=== PATIENT | female | born 2000 | race Caucasian/White ===

== ENCOUNTER → 2022-04-06 | Outpatient (CLI) | payer BC ==
--- NOTE | 2022-04-06 12:05 | XR ---
EXAM TYPE: LUMBAR SPINE X RAY SERIES COMPARISON: NONE HISTORY: Pain TECHNIQUE: 7 views are submitted including flexion and extension lateral views. FINDINGS: Alignment is anatomic. The pedicles are intact. The transverse processes are intact. There is grad e 1 anterolisthesis of L5 on S1 likely bilateral spondylolysis. There may be very minimal increase in the spondylolisthesis on flexion and extension views. IMPRESSION: 1. Grade 1 anterolisthesis L5-S1 with bilateral spondylolysis. There is slight interval increase in t he degree of anterolisthesis on flexion and extension views estimated 2 to 3 mm relative to neutral l ateral view.
== END | disposition home or self-care (01) ==
LOC: RADXRMAIN 11:37
PROVIDERS: ATTEND Neurological Surgery
DX: M43.17 Spondylolisthesis, lumbosacral region (principal); M47.817 Spondylosis without myelopathy or radiculopathy, lumbosacral region
CPT/HCPCS: 72114

== ENCOUNTER 2022-08-21 17:09 | Emergency (ER) | payer BC ==
--- NOTE | 2022-08-21 17:53 | ED ---
General Adult HPI - General Source: patient Mode of arrival: ambulatory Limitations: no limitations <Melissa Wright - Last Filed: 08/21/22 17:50> - History of Present Illness -: week(s) (1) Location: head Severity scale (1-10): 0 Consistency: intermittent Associated Symptoms: headaches, nausea/vomiting, other (palpitations) Treatments Prior to Arrival: none <Terry De Leon - Last Filed: 08/22/22 01:50> - General Chief complaint: Dizziness Stated complaint: Dizzy,vomiting Time Seen by Provider: 08/21/22 17:51 - History of Present Illness Initial comments: Patient is a 30-year-old female presenting to the emergency room with complaints of headache, dizziness, palpitations and nausea without vomiting ongoing for approximately 1 week with worsening over the last few days. She reports that she recently was switched from Adderall XR to Ritalin immediate release due to lack of availability of her Adderall for her ADHD symptoms. She states that she did have a few days she did not take the medication for a few days but symptoms persisted. She denies any chest pain, shortness of breath, abdominal pain, diarrhea, fevers or chills. (Melissa Wright) This is a nontoxic-appearing 22-year-old female that presents to the emergency room with complaints of dizziness, palpitations, headache, and nausea and vomiting since Sunday last week. She started Ritalin 3 weeks [address] prescribed by Dr[address] Ambriz her primary care doctor for ADHD. She did call him today and recommended stopping the medication and due to persistent vomiting come to the emergency room and be evaluated. Denies any chest pain, cough, fevers, sore throat, or abdominal pain. States no chance of not sexually active. (Terry De Leon) - Related Data Allergies Allergy/AdvReac Type Severity Reaction Status Date / Time No Known Allergies Allergy Verified 08/21/22 17:43 Review of Systems ROS Other: All systems not noted in ROS Statement are negative. <Melissa Wright - Last Filed: 08/21/22 17:50> ROS Other: All systems not noted in ROS Statement are negative. <Terry De Leon - Last Filed: 08/22/22 01:50> ROS Statement: Those systems with pertinent positive or pertinent negative responses have been documented in the HPI. Past Medical History Additional Past Medical History / Comment(s): scoliosis History of Any Multi-Drug Resistant Organisms: None Reported Past Surgical History: No Surgical Hx Reported Past Psychological History: ADD/ADHD, Anxiety, Depression Smoking Status: Never smoker Past Alcohol Use History: Rare Past Drug Use History: None Reported <Melissa Wright - Last Filed: 08/21/22 17:50> General Exam Limitations: no limitations <Melissa Wright - Last Filed: 08/21/22 17:50> General appearance: alert, in no apparent distress Head exam: Present: atraumatic, normocephalic Eye exam: Present: normal appearance. Absent: scleral icterus, conjunctival injection, periorbital swelling ENT exam: Present: mucous membranes moist Neck exam: Present: full ROM. Absent: tenderness, meningismus Respiratory exam: Present: normal lung sounds bilaterally. Absent: respiratory distress, accessory muscle use Cardiovascular Exam: Present: regular rate, normal rhythm GI/Abdominal exam: Present: soft Extremities exam: Present: normal capillary refill. Absent: pedal edema Neurological exam: Present: alert, oriented X3, CN II-XII intact Psychiatric exam: Present: normal affect, normal mood Skin exam: Present: warm, dry, normal color. Absent: cyanosis, diaphoretic, petechiae, pallor <Terry De Leon - Last Filed: 08/22/22 01:50> - General Exam Comments Initial Comments: Visual Physical Exam Vital signs reviewed General: Well-appearing, nontoxic, no acute distress. Head: Normocephalic, atraumatic Eyes: PERRLA, EOMI ENT: Airway patent Chest: Nonlabored breathing Skin: No visual rash, normal skin tone Neuro: Alert and oriented 3 Musculoskeletal: No gross abnormalities (Melissa Wright) Course Vital Signs 08/21/22 08/21/22 08/22/22 17:39 23:58 00:37 Temperature 98.6 F 97.6 F Pulse Rate 103 H 90 80 Respiratory 20 18 18 Rate Blood Pressure 129/80 114/75 O2 Sat by Pulse 100 99 Oximetry EKG Findings - EKG Results: EKG: sinus rhythm (EKG shows sinus rhythm with arrhythmia, ventricular rate 92, CO interval 0.172, QRS 0.88, QTc 0.366; normal axis, no old EKG to compare) <Terry De Leon - Last Filed: 08/22/22 01:50> Medical Decision Making - Lab Data Result diagrams: 08/21/22 20:23 08/21/22 20:23 <Terry De Leon - Last Filed: 08/22/22 01:50> - Medical Decision Making EKG shows sinus rhythm with arrhythmia, ventricular rate 92, CO interval 0.172, QRS 0.88, QTc 0.366; normal axis, no old EKG to compare CBC and electrolytes are unremarkable. Patient has no dysuria. States not currently sexually active. No concern for . Patient has had no nausea vomiting in the emergency room. She says her symptoms have resolved. Tolering PO in the ER. Vital signs are stable. This is likely a side effect of her Ritalin she recently started for ADHD. She was directed to stop this medication as directed by her PCP and follow-up with him this week. She is agreeable to this plan of care. Case discussed with Dr. Parra Was pt. sent in by a medical professional or institution (, PA, HOME ORGANIZER, urgent care, hospital, or snf...) When possible be specific @ -No Did you speak to anyone other than the patient for history (EMS, parent, family, police, friend...)? What history was obtained from this source @ -No Did you review nursing and triage notes (agree or disagree)? Why? @ -I reviewed and agree with nursing and triage notes Were old charts reviewed (outside hosp., previous admission, EMS record, old EKG, old radiological studies, urgent care reports/EKG's, snf records)? Report findings @ -No old charts were reviewed Differential Diagnosis (chest pain, altered mental status, abdominal pain women, abdominal pain men, vaginal bleeding, weakness, fever, dyspnea, syncope, headache, dizziness, GI bleed, back pain, seizure, CVA, palpatations, mental health, musculoskeletal)? @ -Differential Palpitations Ventricular arrhythmias, atrial arrhythmias, myocardial infarction, anemia, thyrotoxicosis, electrolyte imbalance, hypokalemia, pulmonary embolism, pulmonary disease, drugs, alcohol, anxiety, stress, Medication adverse reaction, viral illness, UTI, .... This is not meant to be an all-inclusive list. EKG interpreted by me (3pts min.). @ -As above X-rays interpreted by me (1pt min.). @ -None done CT interpreted by me (1pt min.). @ -None done U/S interpreted by me (1pt. min.). @ -None done What testing was considered but not performed or refused? (CT, X-rays, U/S, labs)? Why? @ -None What meds were considered but not given or refused? Why? @ -None Did you discuss the management of the patient with other professionals (professionals i.e. , PA, HOME ORGANIZER, lab, RT, psych nurse, social worker psychiatric, certified corporate travel executive, teacher, chief fundraising officer, rehabilitation case coordinator)? Give summary @ -No Was smoking cessation discussed for >3mins.? @ -No Was critical care preformed (if so, how long)? @ -No Were there social determinants of health that impacted care today? How? (Homelessness, low income, unemployed, alcoholism, drug addiction, transportation, low edu. Level, literacy, decrease access to med. care, long term, rehab)? @ -No Was there de-escalation of care discussed even if they declined (Discuss DNR or withdrawal of care, Hospice)? DNR status @ -No What co-morbidities impacted this encounter? (DM, HTN, Smoking, COPD, CAD, Cancer, CVA, ARF, Chemo, Hep., AIDS, mental health diagnosis, sleep apnea, morbid obesity)? @ -ADHD Was patient admitted / discharged? Hospital course, mention meds given and route, prescriptions, significant lab abnormalities, going to OR and other pertinent info. @ -discharged Undiagnosed new problem with uncertain prognosis? @ -No Drug Therapy requiring intensive monitoring for toxicity (Heparin, Nitro, Insulin, Cardizem)? @ -No Were any procedures done? @ -No Diagnosis/symptom? @ -Palpitations, nausea vomiting Acute, or Chronic, or Acute on Chronic? @ -Acute Uncomplicated (without systemic symptoms) or Complicated (systemic symptoms)? @ -Uncomplicated Side effects of treatment? @ -No Exacerbation, Progression, or Severe Exacerbation? @ -No Poses a threat to life or bodily function? How? (Chest pain, [place], [place], pneumonia, PE, COPD, DKA, ARF, appy, cholecystitis, CVA, Diverticulitis, Homicidal, Suicidal, threat to staff... and all critical care pts) @ -No (Riske,Terry) - Lab Data Lab Results 08/21/22 08/21/22 08/21/22 Range/Units 20:23 20:23 22:30 WBC 7.8 (3.8-10.6) k/uL RBC 4.79 (3.80-5.40) m/uL Hgb 15.3 (11.4-16.0) gm/dL Hct 44.6 (34.0-46.0) % MCV 93.3 (80.0-100.0) fL MCH 32.1 (25.0-35.0) pg MCHC 34.4 (31.0-37.0) g/dL RDW 12.6 (11.5-15.5) % Plt Count 220 (150-450) k/uL MPV 8.9 Neutrophils % 54 % Lymphocytes % 37 % Monocytes % 5 % Eosinophils % 1 % Basophils % 1 % Neutrophils # 4.2 (1.3-7.7) k/uL Lymphocytes # 2.9 (1.0-4.8) k/uL Monocytes # 0.4 (0-1.0) k/uL Eosinophils # 0.1 (0-0.7) k/uL Basophils # 0.0 (0-0.2) k/uL Sodium 139 (137-145) mmol/L Potassium 3.8 (3.5-5.1) mmol/L Chloride 102 (98-107) mmol/L Carbon Dioxide 28 (22-30) mmol/L Anion Gap 9 mmol/L BUN 13 (7-17) mg/dL Creatinine 0.71 (0.52-1.04) mg/dL Est GFR (CKD-EPI)AfAm >90 (>60 ml/min/1.73 sqM) Est GFR (CKD-EPI)NonAf >90 (>60 ml/min/1.73 sqM) Glucose 87 (74-99) mg/dL Calcium 10.2 (8.4-10.2) mg/dL Total Bilirubin 0.4 (0.2-1.3) mg/dL AST 25 (14-36) U/L ALT 21 (4-34) U/L Alkaline Phosphatase 61 (38-126) U/L Total Protein 7.3 (6.3-8.2) g/dL Albumin 4.6 (3.5-5.0) g/dL Urine Color Yellow Urine Appearance Cloudy H (Clear) Urine pH 6.0 (5.0-8.0) Ur Specific [place] 1.023 (1.001-1.035) Urine Protein Trace H (Negative) Urine Glucose (UA) Negative (Negative) Urine Ketones Negative (Negative) Urine Blood Negative (Negative) Urine Nitrite Negative (Negative) Urine Bilirubin Negative (Negative) Urine Urobilinogen <2.0 (<2.0) mg/dL Ur Leukocyte Esterase Large H (Negative) Urine RBC 3 (0-5) /hpf Urine WBC 20 H (0-5) /hpf Ur Squamous Epith Cells 54 H (0-4) /hpf Urine Bacteria Occasional H (None) /hpf Hyaline Casts 2 (0-2) /lpf Urine Mucus Rare H (None) /hpf Disposition <Melissa Wright - Last Filed: 08/21/22 17:50> Is patient prescribed a controlled substance at d/c from ED?: No Time of Disposition: 00:20 <Terry De Leon - Last Filed: 08/22/22 01:50> Clinical Impression: Palpitations, Nausea & vomiting, Headache Disposition: HOME SELF-CARE Condition: Good Instructions (If sedation given, give patient instructions): Heart Palpitations (ED), Acute Nausea and Vomiting (ED), Dizziness (ED) Additional Instructions: Increase your fluid intake. Stop the Ritalin as directed by your primary care doctor. Follow-up with your doctor this week. Return to the emergency room with any new or concerning symptoms. Referrals: Nonstaff,Physician [REFERRING] - 1-2 days
[2022-08-21 20:59] LABS: Basophils % (A) 1 %; Eosinophils # (A) 0.1 k/uL (0-0.7); Eosinophils % (A) 1 %; HCT 44.6 % (34.0-46.0); HGB 15.3 gm/dL (11.4-16.0); Lymphocytes # (A) 2.9 k/uL (1.0-4.8); Lymphocytes % (A) 37 %; MCH 32.1 pg (25.0-35.0); MCHC 34.4 g/dL (31.0-37.0); MCV 93.3 fL (80.0-100.0); Mean Platelet Volume 8.9; Monocytes # (A) 0.4 k/uL (0-1.0); Monocytes % (A) 5 %; Neutrophils # (A) 4.2 k/uL (1.3-7.7); Neutrophils % (A) 54 %; Platelet Count 220 k/uL (150-450); RBC 4.79 m/uL (3.80-5.40); RDW 12.6 % (11.5-15.5); WBC 7.8 k/uL (3.8-10.6)
[2022-08-21 21:03] LABS: Potassium 3.8 mmol/L (3.5-5.1)
[2022-08-21 21:06] LABS: AST 25 U/L (14-36); African American GFR (CKD) >90 (>60 ml/min/1.73 sqM); Albumin 4.6 g/dL (3.5-5.0); Alkaline Phosphatase 61 U/L (38-126); Blood Urea Nitrogen 13 mg/dL (7-17); Carbon Dioxide 28 mmol/L (22-30); Chloride 102 mmol/L (98-107); Glucose 87 mg/dL (74-99); Non-African American GFR(CKD) >90 (>60 ml/min/1.73 sqM); Total Bilirubin 0.4 mg/dL (0.2-1.3); Total Protein 7.3 g/dL (6.3-8.2)
[2022-08-21 21:07] LABS: ALT 21 U/L (4-34); Anion Gap 9 mmol/L; Calcium 10.2 mg/dL (8.4-10.2); Sodium 139 mmol/L (137-145)
[2022-08-21 23:10] LABS: Appearance,Urine Cloudy (Clear); Bacteria,Urine Occasional /hpf; Bilirubin,Urine Negative (Negative); Blood,Urine Negative (Negative); Color,Urine Yellow; Glucose,Urine (UA) Negative (Negative); Hyaline Casts,Urine 2 /lpf (0-2); Ketones,Urine Negative (Negative); Leukocyte Esterase,Urine Large (Negative); Mucus,Urine Rare /hpf; Nitrite,Urine Negative (Negative); Protein,Urine Trace (Negative); RBC,Urine 3 /hpf (0-5); Specific Gravity,Urine 1.023 (1.001-1.035); Squamous Epithelial Cell,Urine 54 /hpf (0-4); Urobilinogen,Urine <2.0 mg/dL (<2.0); WBC,Urine 20 /hpf (0-5)
[2022-08-22] VITALS: BP 114/75; RESP 18; TEMP 97.6
[2022-08-22 00:38] VITALS: PULSE 80
== END 2022-08-22 00:38 | disposition home or self-care (01) ==
LOC: EC 17:09
DX: R00.2 Palpitations (principal); R11.2 Nausea with vomiting, unspecified; R51.9 Headache, unspecified; F41.9 Anxiety disorder, unspecified; F32.A Depression, unspecified
CPT/HCPCS: 36415; 80053; 81001; 85025; 93005; 99284

== ENCOUNTER → 2022-10-11 | Outpatient (CLI) | payer BC ==
[2022-10-11 11:56] VITALS: BP 108/68; PULSE 66; RESP 18; TEMP 97.9
--- NOTE | 2022-10-11 13:47 | P.PAINPG ---
PQRS Measure Charge Sheet Comment: HISTORY OF PRESENT ILLNESS: 22 yr old female as a referral from Dr Ramos presents today w severe and chronic LBP since 2019 secondary to disc bulges for evaluation. Pt states pain level is provoked at 7 /10 in intensity, constant, localized in the lower lumbar spine, sharp in character w shooting pain up towards the spine. Pain is provoked by walking/ twisting for periods of 20 min or more. Pain is alleviated by PT x 6 wks in Summer 2020, physician guided exercises 4 times weekly since, massages monthly x 1 yr in 2021 which were ineffective, chiropractic treatments semi monthly as needed for years, heat, ice, medications (Naproxen), topical, repositioning and rest. Pt states she's had 2 LESIs in 2020 which provoked pain and she does not want them again. PMH: Scoliosis, ADD/ADHD, MDD/ Anxiety PSH: Denies SH: Never smoker, Rare ETOH use, No illicit drug use FH: Non contributory All: NKDA Meds: See list REVIEW OF ORGAN SYSTEMS: CONSTITUTIONAL: No fevers or chills. No recent weight loss. NEUROLOGICAL: + numbness and tingling along the distal extremities. No seizure disorders or headaches. MUSCULOSKELETAL: + pain PSYCHIATRIC: Denies current depression or suicidal thoughts. Physical Examinations : Constitutional : Cooperative , not in acute distress . Neurologic : Cranial nerve II to XII intact. No focal neurological deficits. Psychiatric : alert & oriented x 3. Matching mood & appropriate affect. Judgment & insight intact. Musculoskeletal : Cervical Spine Motor strength in the deltoid and biceps: Normal right side. Normal Left side Motor strength biceps and the wrist extensors: Normal right side . Normal left side Motor strength in the triceps muscle: Normal right side. Normal left side Deep tendon reflexes: Normal at the biceps. Normal at Brachioradialis. Normal at triceps Vertebral body tenderness to deep palpation over Cervical facet loading test: positive bilaterally Spurling test: positive bilaterally Neck distraction test: positive bilaterally Letty sign: positive bilaterally Lumbar spine Motor strength lower extremities ,thigh and legs 5/5 Right side , 5/5 Left side Deep tendon reflexes : Normal Knee Jerk. Normal Ankle Jerk Vertebral body tenderness Chapin Test positive Lumbar facet Loading Test: positive Right / positive Left on L4-L5, L5-S1 Range of motion of the lumbar spine Flexion 30 degrees, extension 10 degrees Straight Leg Raise test: Left/ Right positive at degree Trevor test: positive right / positive left. Severe tenderness over the Sacroiliac joint on the Right / Left sides Gaenslen test: positive bilaterally Seated flexion test: positive bilaterally. Sacral spine : Severe tenderness over the Sacroiliac joint: right side / left side Range of motion: Flexion of the lumbar spine <60 degrees Range of motion: Extension of the lumbar spine <20 degrees Gaenslen's Test positive Marco Antonio's Test positive Trevor test: positive right side / left side Thigh Thrust Test Sacral Thrust Test Imaging: MRI noncontrast of the lumbar spine for 09/06/22 reviewed Assessment/ Plan : Level scoliosis, lumbar spondylolisthesis Recommendation of MBB L4-L5-S1 #1. May need a series of injections for optimal pain relief. Risks, benefits of procedure discussed and patient verbalized understanding. Admits to aspirin or anti- coagulant use or medical history of diabetes. Protocol for discontinuation/ continuation of medications glory procedure discussed. Minimal anesthesia provided, if clinically indicated, consisting of Versed and Fentanyl. All questions answered. I have spent greater than 30 minutes on patient care today. Dr River was available by phone for the evaluation of this patient. The time was used to review the medical records including relevant urine studies and Prescription history (MAPs), review of the available imaging, evaluation and examination of the patient, coordination of care with the medical staff and if applicable referring physicians, as well as creation of the medical record Controlled Substance Measures - Controlled Substance Measures Is patient prescribed a controlled substance at discharge?: No
== END ==
LOC: PNWHC3 09:30
PROVIDERS: ATTEND Specialist
DX: M43.16 Spondylolisthesis, lumbar region (principal); M41.86 Other forms of scoliosis, lumbar region; F32.9 Major depressive disorder, single episode, unspecified; F41.9 Anxiety disorder, unspecified
CPT/HCPCS: 99211

== ENCOUNTER 2022-11-07 12:23 | Day surgery (SDC) | payer BC ==
[2022-11-02 13:47] VITALS: BMI 30.9
[~2022-11-07 12:23] MED LIST: LACTATED RINGERS 1,000 ML IV SCH
[2022-11-07 12:44] VITALS: TEMP 98
[2022-11-07] MEDS ORDERED: fentaNYL (PF) 50 MCG/ML 2 ML AMP ONE (13:06)
[2022-11-07] MEDS ORDERED: ROPIVACAINE 5 MG/ML 20 ML AMPULE ONE (13:06)
[2022-11-07] MEDS ORDERED: MIDAZOLAM 2 MG/2 ML VIAL ONE (13:06)
[2022-11-07] MEDS ORDERED: TRIAMCINOLONE ACETONIDE 40 MG/ML 1 ML VIAL ONE (13:06)
--- NOTE | 2022-11-07 13:21 | P.PCN ---
Date of Procedure: 11/07/22 Description of Procedure: Pre- and Post-operative Diagnosis: Lumbar facet arthropathy, and lumbar spon dylosis without myelopathy. Procedure: #1 Diagnostic Medial Branch Block at bilateral Lumbar 4/5 and #1 diagnostic dorsal ramus block at Lumbar 5/ sacral ala levels (total 4 levels) Surgeon: Hemanth Alvarado Anesthesia: Local: 1% Lidocaine, IV sedation : Versed 2 milligrams and fentanyl. 50 g Sedation supervision start time: 1306 Sedation supervision ended time: 131 Complications: None EBL: None Specimen removed: None Fluoroscopic image: Saved to patient electronic medical records. Indications for Procedure: The patient is well known to pain clinic for his chronic low back pain management. The lumbar facet loading test was positive with a clinical diagnosis of lumbar facet arthropathy. Failed with conservative therapy. Came here for interventional help for better pain relief. Procedure and Findings: The patient was seen and examined. The written informed consent was obtained after explaining the risks, benefits and alternatives of the procedure to the patient. The patient was brought to the procedure room and was placed in the prone position on the operating table table. A pillow was placed under the abdomen to reduce lumbar lordosis. Standard anesthesia monitoring was done through out the procedure. The skin preparation was done with ChloraPrep, and draping was done in usual sterile fashion. Sterile technique was observed throughout the procedure. Under fluoroscopic guidance, right the Lumbar 4, 5 and Sacral ala levels were identified in the AP view. For lumbar L4, and L5 levels the targeting area of superior articular process, and close to the most medial and superior aspect of transverse process identified, marked. 1ml of 1% Lidocaine was used with a 25 gauge needle to achieve adequate local anesthesia of the skin and subcutaneous tissue at each level. A 22 gauge 3.5 inch spinal needle was placed and advanced targeting area which was close to the most medial and superior aspect of the transverse process. For Lumbar 5/ sacral ala level, fluoroscope was used in the anteroposterior view, and the needle tip was placed at the superior and most medial part of sacral ala close to the superior articular process. A bony contact was obtained and needle tip position was confirmed at anteroposterior view. No paresthesia was noted. A negative aspiration was confirmed. 0.5 ml solution per level was injected, the block solution containing 3 ml of 0.5% ropivacaine preservative-free solution mixed with 40 MG of Kenalog. The needles were removed intact. Entire procedure repeated on the left side. Lumbar area was cleaned and bandages were applied. Disposition : The patient tolerated the procedure very well. The patient was transferred to the recovery room and remained stable until discharged home. The patient was given detailed discharge instructions for infection, bleeding, and increased pain at the injection site, and was advised to seek immediate medical attention should significant side effects develop. The patient will be scheduled with Pain Clinic within 4 weeks for repeat procedure if it's helpful.
[2022-11-07] MEDS ORDERED: IV FLUID CONTINUATION 600 ML IV ONE (13:22)
[2022-11-07 13:27] VITALS: RESP 20
--- NOTE | 2022-11-07 13:30 | FL ---
Intraoperative/procedural fluoroscopic services were provided. Total fluoroscopy time is 3 seconds wi th a total of 4 submitted images to PACS. Please see the operative/procedural note for further detail s. DAP: [id number]
[2022-11-07 13:39] VITALS: BP 103/62; PULSE 65
== END 2022-11-07 14:00 ==
LOC: ORPAIN 12:23
DX: M47.816 Spondylosis without myelopathy or radiculopathy, lumbar region (principal); G89.29 Other chronic pain; F41.8 Other specified anxiety disorders; M41.9 Scoliosis, unspecified; Z79.899 Other long term (current) drug therapy
CPT/HCPCS: 81025; 64493; 64494 ×2; 99152; J2250; J3301; J3010; J2795

== ENCOUNTER → 2023-01-06 | Outpatient (CLI) | payer BC ==
[2023-01-06 10:44] LABS: Chloride 104 mmol/L (98-107)
[2023-01-06 10:45] LABS: African American GFR (CKD) >90 (>60 ml/min/1.73 sqM); Anion Gap 7 mmol/L; Blood Urea Nitrogen 13 mg/dL (7-17); Calcium 9.9 mg/dL (8.4-10.2); Carbon Dioxide 26 mmol/L (22-30); Glucose 77 mg/dL (74-99); Non-African American GFR(CKD) >90 (>60 ml/min/1.73 sqM); Potassium 4.2 mmol/L (3.5-5.1); Sodium 137 mmol/L (137-145)
[2023-01-06 10:53] LABS: INR 0.9 (<1.2)
[2023-01-06 10:54] LABS: Partial Thromboplastin Time 23.8 sec (22.0-30.0)
[2023-01-06 10:55] LABS: Basophils % (A) 1 %; Eosinophils # (A) 0.1 k/uL (0-0.7); Eosinophils % (A) 1 %; HCT 41.7 % (34.0-46.0); HGB 13.8 gm/dL (11.4-16.0); Lymphocytes # (A) 1.9 k/uL (1.0-4.8); Lymphocytes % (A) 34 %; MCH 31.9 pg (25.0-35.0); MCHC 33.2 g/dL (31.0-37.0); MCV 95.9 fL (80.0-100.0); Mean Platelet Volume 10.1; Monocytes # (A) 0.4 k/uL (0-1.0); Monocytes % (A) 7 %; Neutrophils % (A) 55 %; Platelet Count 182 k/uL (150-450); RBC 4.34 m/uL (3.80-5.40); RDW 12.5 % (11.5-15.5); WBC 5.4 k/uL (3.8-10.6)
[2023-01-06 11:10] LABS: Appearance,Urine Cloudy (Clear); Bacteria,Urine Rare /hpf; Bilirubin,Urine Negative (Negative); Blood,Urine Negative (Negative); Color,Urine Light Yellow; Glucose,Urine (UA) Negative (Negative); Ketones,Urine Negative (Negative); Leukocyte Esterase,Urine Large (Negative); Nitrite,Urine Negative (Negative); PH, Urine 7.5 (5.0-8.0); Protein,Urine Negative (Negative); RBC,Urine 1 /hpf (0-5); Specific Gravity,Urine 1.011 (1.001-1.035); Squamous Epithelial Cell,Urine 30 /hpf (0-4); Urobilinogen,Urine <2.0 mg/dL (<2.0); WBC,Urine 1 /hpf (0-5)
== END | disposition home or self-care (01) ==
LOC: LABPAT 09:33
PROVIDERS: ATTEND Pediatrics
DX: Z01.818 Encounter for other preprocedural examination (principal); M43.17 Spondylolisthesis, lumbosacral region
CPT/HCPCS: 80048; 81001; 85025; 85610; 85730; 87070; 93005

== ENCOUNTER 2023-01-08 05:43 | Observation (INO) | payer BC ==
[2023-01-01 17:51] VITALS: BMI 33.3
[~2023-01-08 05:43] MED LIST changes: +DEXAMETHASONE SOD PHOSPHATE 4 MG/ML 1 ML VIAL IV ONE; -LACTATED RINGERS 1,000 ML IV SCH; +LIDOCAINE 1% (10MG/ML) FOR IV START INTRADERMA PRN; +MIDAZOLAM 2 MG/2 ML VIAL IV PRN; +ceFAZolin 1,000 MG in SODIUM CHLORIDE 0.9% IRRIGATIO 1,000 ML IRRIGATION PRN
[2023-01-08] MEDS: LACTATED RINGERS 1,000 ML IV SCH ×2 (06:42→06:59)
[2023-01-08] MEDS: ONDANSETRON 4 MG/2 ML VIAL IVP ONE ×2 (06:47→15:51)
[2023-01-08] MEDS ORDERED: SUCCINYLCHOLINE CHLORIDE 200 MG/10 ML VIAL IV ONE (06:55)
[2023-01-08] MEDS ORDERED: PROPOFOL 10 MG/ML 20 ML VIAL IV ONE (06:55)
[2023-01-08] MEDS ORDERED: LIDOCAINE 2% INJ 20 MG/ML (2 ML VIAL) ONE (06:55)
[2023-01-08] MEDS ORDERED: PHENYLEPHRINE-0.9% NACL SYG 1,000 MCG/10 ML SYRINGE ONE (06:55)
[2023-01-08] MEDS ORDERED: fentaNYL (PF) 50 MCG/ML 2 ML AMP ONE (06:55)
[2023-01-08] MEDS ORDERED: ePHEDrine 50 MG/ML 1 ML VIAL ONE (06:55)
[2023-01-08] MEDS ORDERED: MIDAZOLAM 2 MG/2 ML VIAL ONE (06:55)
[2023-01-08] MEDS ORDERED: GLYCOPYRROLATE 0.2 MG/ML 2 ML VIAL ONE (06:55)
[2023-01-08] MEDS ORDERED: ROCURONIUM 10 MG/ML (5 ML VIAL) IV ONE (06:55)
[2023-01-08] MEDS ORDERED: NEOSTIGMINE 1 MG/ML 10 ML VIAL ONE (06:55)
[2023-01-08] MEDS ORDERED: GELATIN SPONGE,ABSORB (LARGE) 1 EACH SPONGE TOPICAL ONE (07:00)
[2023-01-08] MEDS ORDERED: LIDOCAINE 0.5%-EPI 1:200,000 50 ML VIAL SQ ONE (07:00)
[2023-01-08] MEDS ORDERED: THROMBIN (BOVINE) 5,000 UNIT VIAL TOPICAL ONE (07:00)
[2023-01-08] MEDS ORDERED: LACTATED RINGERS 1,000 ML IV ONE ×2 (08:30→15:20)
[2023-01-08] MEDS ORDERED: BENZOCAINE/MENTHOL LOZENG 1 EACH LOZENGE MUCOUS MEM PRN (10:30)
[2023-01-08] MEDS ORDERED: ONDANSETRON 4 MG/2 ML VIAL IVP PRN (10:30)
--- NOTE | 2023-01-08 10:41 | P.OP ---
Date of Procedure: 01/08/23 Preoperative Diagnosis: Dynamic spondylolisthesis L5-S1, spondylolysis, low back pain, lower extremity radiculopathy Postoperative Diagnosis: Same Anesthesia: GETA Pathology: none sent Condition: stable Disposition: PACU Description of Procedure: DESCRIPTION OF PROCEDURE(S): BRIEF OPERATIVE NOTE Preoperative Diagnosis: Dynamic spondylolisthesis L5-S1, spondylolysis, low back pain, lower extremity radiculopathy Postoperative Diagnosis: Same Procedure: Laminectomy with facetectomy and foraminotomy L5-S1 on the left Computer CT navigation aided Minimally invasive Posterior lateral and fusion L5-S1 Minimally invasive Transforaminal lumbar interbody fusion for a 360 fusion L5-S1 Discectomy at L5-S1 Placement of interbody graft L5-S1 Use of computer navigation for fusion for hardware placement at L5 and S1 Local autogenous bone grafting Aspiration of bone marrow from the vertebral body pedicle at L5 and the right Use of bone graft extenders Surgeon: Dr. Ramos Business Performance Specialist: Michael YANG who is present throughout the entire the case persistence during positioning, dissection, exposure, visualization, and all crucial elements of the case as well as closure. Anesthesia: General anesthesia per Estimated blood loss: Approximately 250 mL Complications: None apparent Components implanted: K2M Sycamore minimally invasive Erwin pedicle screw system withscrews measuring 6.5 mm in diameter to rods one expandable interbody cage with 10 mL of osteo amp bio4 bone graft substitute and 30 mL of the BX bone fibers to supplement the local autogenous bone graft and bone marrow aspirate Disposition: To recovery room in good stable condition. OPERATIVE INDICATIONS The patient has had severe issues at their lower extremity in her lower back over the past several years with significant worsening over the past several months. Over the past few months the patient had pain at their back and their lower extremities. The patient has been having progressive pain in her back which has been becoming more incapacitating for her despite conservative treatment The patient is having significant pain in their back. They are unable to obtain any comfort. We did aggressive conservative treatment with medications therapy and interventional pain management however thery were not having any relief. The patient also showed evidence of a listhesis with some dynamic instability. The patient has been through conservative treatment. We discussed various treatment options including surgery, and the patient wishes to proceed with surgery We discussed the risk, patient's alternatives and benefits of surgery including but not limited to, risk of bleeding risk of infection, risk of need for further surgery, risk of decreased, loss of motion, muscle function, malunion nonunion, hardware failure, nerve damage, paralysis, heart attack, blindness and . They understood issues with the current pandemic and the possibility of exposure. OPERATIVE SUMMARY After discussing all the risks, patient alternatives and benefits at length, the patient elected to proceed with surgical intervention, signed informed consent, and presented for their procedure. The patient was seen and examined in the fl eoperative holding area and the surgical site was marked. The patient was given antibiotics and brought to the operating room. The patient was sedated and intubated by anesthesia in standard fashion. The patient was positioned on to the operating room table in a prone position on the appropriate frame which was well-padded and well molded. We were careful to pad any bony prominences and pressure points. We were careful to maintain the patient's cervical spine and good neutral alignment and position throughout. The patient was prepped and draped in a normal standard fashion. An appropriate timeout and keystone protocol performed. We were able to proceed with the surgery. The local wound area was infiltrated with local anesthetic. Over the right iliac crest I was able to make small stab incisions and establish a guidepin screw fixation to the iliac crest 2. I was able place the computer referencing device over the guidepins to establish an appropriate reference point for the Ziem CT navigation. We then were able to place patient in an appropriate drape and do a navigation spin for visualization and 3-D reconstruction of the lumbar spine. I was able utilize C-arm guidance and navigation to establish appropriate position over the pedicles bilaterally at the appropriate levels at L5 and S1. With the appropriate levels confirmed was able to make small incisions over the appropriate pedicle sites bilaterally. Utilizing the computer navigation device I was able to establish bony landmarks at the right iliac crest for a bony reference point for the navigation device. I was able to establish a Jamshidi needle over the lateral aspect of the pedicle and advanced the trocar into the pedicle being careful not to breech superiorly inferiorly medially or laterally using computer navigation device. Position was confirmed regularly with AP and lateral images on C-arm and with the computer navigation device at the appropriate levels bilaterally at L5 and S1. I was able to establish the trocar into the pedicle appropriately into the posterior aspect of the vertebral body bilaterally at the appropriate levels. This was done at each of the pedicle positions and each of the vertebrae. At the superior vertebrae I was able to take approximately 25 mL of bone aspiration for use later in the case to supplement the allograft and autograft bone. I was able place the guidewire into the trocar and into the vertebral body appropriately under C-arm guidance. Dissection was taken down over the wire to the appropriate starting position for the screw placed. The appropriate length screw was chosen, threaded over the guidewire and screwed appropriately into the pedicle and vertebral body under C-arm guidance in excellent alignment and position with good bony purchase. This is done at each of the screw sites at the appropriate levels at L5 and S1. We did a repeat CT guidance spin to assure excellent placement of all the hardware screws at L5 and S1 bilaterally With the screws intact I extended the incision to connect the screw hole sites on the left side. I dissected down to establish access over the pars and lamina to the base of the spinous process. I was able to expose the facet joint. The capsule the facet was taken down and showed some obvious spinal a lysis bilaterally with a loose Briseno fragment . I was able to use a combination of curettes and Kerrison rongeurs and a high-speed drill to take down the facet joint and do a facetectomy. I was able get excellent foraminal decompression and central decompression As able get good central decompression. The ligamentum flavum was taken down to further decompress centrally . I was able to expose the disc space and visualize the traversing nerve root. I was able to establish a annulotomy at the appropriate level of L5-S1 protecting soft tissue and neural structures. Note was made of some disc desiccation at the disc. I performed a complete discectomy with accommodation of curettes and rasps and scrapers. I was able get good endplate preparation at the disc space. I sized for the appropriate size interbody spacer protecting the soft tissue and neural structures. The wound was copiously irrigated and suctioned dry. There is no evidence of any dural tear or leak. I was able to pack the disc space with local autogenous bone graft as well as a small amount of bone graft which was also placed into the interbody cage itself. Protecting the soft tissue structures and neural structures I was able place the interbody cage in good alignment and good position with good fit and fill at the interbody space. I was able to expand the cage appropriately with the appropriate device under C-arm guidance which had excellent positioning and stability. I was able to place backfill bone graft within the cage itself the appropriate rotation and final. Position was confirmed with C-arm guidance. Good hemostasis maintained. There is no evidence of any dural tear or leak. The wound was irrigated and suctioned dry. With the hardware intact, intraoperative C-arm imaging was again taken which showed good alignment and position of the hardware at the appropriate levels. We were then able to measure, contour and place the rods and appropriate hardware bilaterally. I was able to place capcrews, tighten them down, and torque them with the torque screwdriver appropriately. With this intact I was able to place the local autogenous bone graft with additional bone graft enhancer as necessary into the posterior lateral gutters over the decorticated transverse processes and facet joints on the contralateral side. The remainder of the bone graft was placed over the facet joint on the contralateral side after taking down the facet joint capsule. With the bone graft intact, a stable construct, and good decompression at the appropriate levels at L5 and S1, we were able to proceed with closure. Good hemostasis was maintained. There is no evidence of dural tear or leak. The fascia was closed for a watertight closure. he subcuticular tissue was closed with absorbable suture. The wound was cleaned and dried and dressed with the appropriate dressing. The drapes were broken down. The patient was gently rolled back onto their hospital bed being careful to maintain their cervical spine and good neutral alignment and position. They were woken up by anesthesia, extubated, and brought to the recovery room in good stable condition. The patient will be admitted to the hospital for appropriate postoperative care, medical management and monitoring. We will continue to follow them closely about the postoperative course..
[2023-01-08] MEDS: HYDROmorphone 0.5 MG/0.5 ML SYRINGE IVP PRN ×6 (11:13→23:36)
[2023-01-08] MEDS: HYDROcodone/APAP 5-325MG 1 EACH TAB PO PRN ×2 (15:07→20:40)
[2023-01-08] MEDS: SODIUM CHLORIDE 0.9% 1,000 ML IV SCH ×3 (15:52→23:31)
--- NOTE | 2023-01-08 17:34 | FL ---
Intraoperative/procedural fluoroscopic services were provided. Total fluoroscopy time is 40 seconds w ith a total of 5 submitted images to PACS. Please see the operative/procedural note for further detai ls. DAP: [id number] cGycm2
--- NOTE | 2023-01-08 18:14 | P.CONS ---
History of Present Illness - Reason for Consult Consult date: 01/08/23 Medical management Requesting physician: Eliz Ramos - History of Present Illness History of Presenting Illness: Patient is a very pleasant 22-year-old female with a past medical history of asthma, ADHD, bipolar disorder, and depression. She is currently admitted under orthospine surgery team status post elective lumbar surgery L5 through S1. We have been consulted for medical management throughout patient's hospitalization. Patient seen and fully evaluated at bedside. Patient currently reports pain in the lower lumbar region of back. She denies having any numbness or tingling. Family at bedside visiting. Patient tolerating oral intake and postsurgical period and denies any episodes of postoperative nausea or vomiting. Dwyer catheter remains in place at this time. Patient denies having any headache, lightheadedness, dizziness, chest pain, palpitations, shortness of breath, or experiencing any numbness/tingling/weakness in her extremities. Review of systems: Pertinent positives and negatives as discussed in HPI, a complete review of systems was performed and all other systems are negative. Physical exam: Vital signs reviewed and stable. General: Nontoxic, no distress and appears stated age. Derm: Skin warm and dry, normal coloration for ethnicity. Head: Atraumatic, normocephalic and symmetric. Eyes: EOMs intact, no lid lag, and anicteric sclera Mouth: no lip lesions, mucus membranes moist Cardiovascular: regular rate and rhythm with normal S1S2, no murmur, positive posterior tibial pulses bilaterally, and cap refill < 2 seconds. Lungs: Respirations even, regular, and unlabored on room air. Lungs CTA bilaterally, no rhonchi, no rales, no wheezing, and no accessory muscle usage. Abdominal: soft, nontender to palpation, no guarding, no appreciable organomegaly. Dwyer catheter in place. Ext: No gross muscle atrophy, no edema, no contractures. Movement and sensation intact. Neuro: Speech clear, face symmetrical and CN II-XII grossly intact with no noted focal neuro deficits Psych: Alert and oriented to person, place, time, and situation. Appropriate and pleasant affect. Assessment and Plan of Care: Spondylolisthesis Status post lumbar surgery L5 through S1 Patient underwent elective laminectomy with facetectomy and foraminotomy L5 through S1 with CT-guided posterior lateral fusion, discectomy at L5 through S1, placement of interbody graft L5 through S1, fusion for hardware placement of L5 through S1, local protein is bone grafting, and aspiration of bone marrow with bone graft extenders with Dr. Ramos on 01/08/23. Management per primary admitting orthospine surgery team including DVT prophylaxis, pain management, wound/dressing/drain care, and PT/OT. DVT prophylaxis currently with SCDs. Order placed for morning CBC and BMP and will follow-up on results and place additional orders as indicated based upon these results. Asthma, moderate persistent not in acute exacerbation. Patient to continue daily medication regimen with Zyrtec 10 mg daily and Singulair 10 mg daily. Order placed for duo nebs every 2 hours as needed for wheezing and/or shortness of breath. Encourage use of incentive spirometry 10-15 times hourly while awake. Bipolar disorder Depression ADHD Home medications reviewed and reordered. Patient to continue with daily medication regimen consisting of Pristiq 50 mg daily, Adderall 15 mg daily, and Lamictal 25 mg daily. Data review: Vital signs reviewed and stable. Blood pressure 106/72, heart rate 101, respiratory rate 16, temp 98.0F, and SpO2 of 94% on room air. Thank you for allowing us to participate in the care of this pleasant patient. Do not hesitate to contact us with questions. Someone can be reached from the [facility] hospitalist group all hours of the day at [phone] or via [employer]. Patient was seen independently by Nurse Practitioner. This document was prepared using [employer] dictation software. Please allow for errors in heat set operator while rare they do occur. Past Medical History Past Medical History: Asthma, Osteoarthritis (OA) Additional Past Medical History / Comment(s): scoliosis History of Any Multi-Drug Resistant Organisms: None Reported Past Surgical History: No Surgical Hx Reported Additional Past Surgical History / Comment(s): (WISDOM TOOTH EXTRACTION) Past Anesthesia/Blood Transfusion Reactions: No Reported Reaction Past Psychological History: ADD/ADHD, Anxiety, Bipolar, Depression Smoking Status: Never smoker Past Alcohol Use History: Rare Past Drug Use History: None Reported - Past Family History Father Family Medical History: Pulmonary Embolus Additional Family Medical History / Comment(s): COVID RELATED PE Medications and Allergies Home Medications Medication Instructions Recorded Confirmed Type Desvenlafaxine Succinate [Pristiq 50 mg PO DAILY 11/02/22 01/08/23 History ER] Dextroamphetamine/Amphetamine 15 mg PO DAILY 11/02/22 01/08/23 History [Adderall Xr 15 mg Capsule] Montelukast [Singulair] 10 mg PO DAILY 11/02/22 01/08/23 History lamoTRIgine [LaMICtal] 50 mg PO DAILY 11/02/22 01/08/23 History Cetirizine HCl [Zyrtec] 10 mg PO DAILY 01/01/23 01/08/23 History Allergies Allergy/AdvReac Type Severity Reaction Status Date / Time No Known Allergies Allergy Verified 01/08/23 06:30 Physical Exam Vitals: Vital Signs Temp Pulse Pulse Pulse Resp BP BP 01/08/23 16:14 98.0 F 101 H 16 01/08/23 15:38 112 H 16 102/64 01/08/23 14:38 89 16 103/57 01/08/23 13:36 102 H 16 102/53 01/08/23 13:22 71 16 97/53 01/08/23 12:50 84 16 93/52 01/08/23 12:34 98 16 99/51 01/08/23 12:00 94 16 105/57 01/08/23 11:45 79 16 93/52 01/08/23 11:30 94 16 107/58 01/08/23 11:15 96 20 105/62 01/08/23 11:00 109 H 20 107/60 01/08/23 10:46 97.0 F L 115 H 20 115/60 01/08/23 06:28 97.5 F L 92 18 120/65 BP Pulse Ox 01/08/23 16:14 106/72 94 L 01/08/23 15:38 99 01/08/23 14:38 97 01/08/23 13:36 99 01/08/23 13:22 98 01/08/23 12:50 100 01/08/23 12:34 100 01/08/23 12:00 99 01/08/23 11:45 98 01/08/23 11:30 96 01/08/23 11:15 100 01/08/23 11:00 100 01/08/23 10:46 100 01/08/23 06:28 99 Intake and Output 01/08/23 01/08/23 01/08/23 06:59 14:59 22:59 Intake Total 200 1851 50 Output Total 385 Balance 200 1466 50 Intake: IV 200 1851 Intake, IV Titration 50 Amount ceFAZolin 2 gm In Sodium 50 Chloride 0.9% 50 ml @ 100 mls/hr IVPB ONCE PRN Rx# :[id number] Output: Urine 135 Estimated Blood Loss 250 Other: Voiding Method Indwelling Catheter Weight 88.7 kg
[2023-01-08] MEDS ORDERED: IPRATROPIUM-ALBUTEROL 3 ML NEB INHALATION PRN (18:52)
[2023-01-09] MEDS: LACTATED RINGERS 1,000 ML IV SCH ×2 (00:31→22:49)
[2023-01-09] MEDS: HYDROcodone/APAP 5-325MG 1 EACH TAB PO PRN ×5 (01:05→20:39)
[2023-01-09] MEDS: HYDROmorphone 1 MG/ML 1 ML SYRINGE IVP PRN ×4 (03:39→23:18)
[2023-01-09] MEDS: DESVENLAFAXINE SUCCINATE 50 MG TAB.ER.24H PO SCH (08:20)
[2023-01-09] MEDS: SENNOSIDES-DOCUSATE SODIUM 1 EACH TAB PO SCH (08:20)
[2023-01-09] MEDS: lamoTRIgine 25 MG TAB PO SCH (08:20)
[2023-01-09] MEDS: MONTELUKAST 10 MG TAB PO SCH (08:20)
[2023-01-09] MEDS: LORATADINE 10 MG TAB PO SCH (08:20)
--- NOTE | 2023-01-09 08:34 | P.PN ---
Progress Note - Text Progress Note Date: 01/09/23 Orthopedic Spine History of present illness: Patient is a pleasant 22-year-old female who is seen and examined at the bedside following posterior lateral decompression and fusion performed yesterday. Patient states they are doing okay post operatively. Currently does not complain of nausea, vomiting, fever, or chills. Patient states pain has been adequately controlled. Patient is eating without difficulty. Her Dwyer catheter remains intact to be discontinued this morning. She has not been out of bed postoperatively. She is looking for to work with physical therapy today. She does have a brace at the bedside which she will wear for comfort support as needed. She is happy with her initial progress postoperatively. She is not experiencing any significant lower extremity leg pain. She is being seen by medicine for postoperative medical management. Physical Exam Lumbar Fusion: Status post surgical day number 1 Patient is awake, alert, and oriented 3 Vital signs stable Good chest excursion with deep inspiration and expiration Abdomen soft nontender Dorsiflexion, plantarflexion, and extensor hallucis longus positive sustained bilaterally No signs or symptoms of DVT; no calf pain; pneumatic cuffs intact bilateral lower extremities Optifoam dressings are dry and intact over the lumbar spine and right iliac crest one small spot of dried blood on the right dressing; no erythema, purulence, or signs of infection Neurovascularly intact bilaterally lower extremities Dwyer catheter intact Assessment: Status post L5-S1 minimally invasive posterior lateral decompression and fusion with transforaminal lumbar interbody fusion Low back pain L5 spondylolysis L5-S1 dynamic spondylolisthesis Lower extremity radiculopathy History of bipolar disorder Plan: 1. Ambulate as tolerated; work with Physical Therapy to increase mobilization 2. Continue pain control with IV and oral medications; will plan to begin weaning the patient off of IV narcotic medication in anticipation for discharge home in the next 1-2 days 3. Dressings to remain intact with Optifoam; patient may shower with dressings intact 4. Her Dwyer catheter will be discontinued this morning 5. Medical management can continue to manage patient for patient's other medical diagnoses 6. We will continue to follow the patient closely; depending on the patient's progress, we may plan for discharge home as early as tomorrow, 01/10/2023 7. Patient can follow-up with Michael Allen PA-C or Dr. Klever Ramos at [facility] in 2-3 weeks following discharge
[2023-01-09 08:55] LABS: Basophils # (A) 0.05 X 10*3/uL (0.00-0.10); Basophils % (A) 0.6 %; Eosinophils # (A) 0.02 X 10*3/uL (0.04-0.35); Eosinophils % (A) 0.2 %; HCT 33.6 % (37.2-46.3); Lymphocytes # (A) 1.65 X 10*3/uL (0.90-5.00); Lymphocytes % (A) 19.8 %; MCH 31.5 pg (27.0-32.0); MCHC 32.7 d/dL (32.0-37.0); MCV 96.3 FL (80.0-97.0); Monocytes # (A) 0.72 X 10*3/uL (0.20-1.00); Monocytes % (A) 8.7 %; NRBC Per 100 WBC 0 X 10*3/uL (0.00-0.01); Neutrophils # (A) 5.85 X 10*3/uL (1.80-7.70); Neutrophils % (A) 70.3 %; Platelet Count 186 X 10*3/uL (140-440); RBC 3.49 X 10*6/uL (4.10-5.20); RDW 12.4 % (11.5-14.5); WBC 8.32 X 10*3/uL (4.50-10.00)
[2023-01-09] MEDS ORDERED: NON FORMULARY DRUG (Dextroamphetamine/Amphetamine [Adderall Xr 15 Mg Capsule] 15 MG Cap.Er PO SCH (09:00)
[2023-01-09 09:07] LABS: BUN/Creat Ratio 10.17 Ratio (12.00-20.00); Blood Urea Nitrogen 6.1 mg/dL (9.0-27.0); Calcium 8.9 mg/dL (8.7-10.3); Carbon Dioxide 23.9 mmol/L (21.6-31.8); Chloride 107 mmol/L (96-109); Glucose 111 mg/dL (70-110); Potassium 3.9 mmol/L (3.5-5.5); Sodium 139 mmol/L (135-145)
[2023-01-09] MEDS: CYCLOBENZAPRINE 10 MG TAB PO PRN (10:27)
[2023-01-09] MEDS: SODIUM CHLORIDE 0.9% 1,000 ML IV SCH (12:59)
[2023-01-09] MEDS: HYDROmorphone 0.5 MG/0.5 ML SYRINGE IVP PRN (13:10)
--- NOTE | 2023-01-09 14:39 | P.PN ---
Subjective Progress Note Date: 01/09/23 History of Presenting Illness: Patient is a very pleasant 22-year-old female with a past medical history of asthma, ADHD, bipolar disorder, and depression. She is currently admitted under orthospine surgery team status post elective lumbar surgery L5 through S1. We have been consulted for medical management throughout patient's hospitalization. Physical exam: Patient reports continued pain in lower lumbar back. Patient reports uncontrolled pain throughout the night and states she did not get any sleep because she was up every hour in pain. She continues to deny having any numbness/tingling/weakness in her extremities. Dwyer catheter remains in place. Vital signs reviewed and stable. General: Nontoxic, no distress and appears stated age. Derm: Skin warm and dry, normal coloration for ethnicity. Head: Atraumatic, normocephalic and symmetric. Eyes: EOMs intact, no lid lag, and anicteric sclera Mouth: no lip lesions, mucus membranes moist Cardiovascular: regular rate and rhythm with normal S1S2, no murmur, positive posterior tibial pulses bilaterally, and cap refill < 2 seconds. Lungs: Respirations even, regular, and unlabored on room air. Lungs CTA bila terally, no rhonchi, no rales, no wheezing, and no accessory muscle usage. Abdominal: soft, nontender to palpation, no guarding, no appreciable organomegaly. Dwyer catheter in place. Ext: No gross muscle atrophy, no edema, no contractures. Movement and sensation intact. Neuro: Speech clear, face symmetrical and CN II-XII grossly intact with no noted focal neuro deficits Psych: Alert and oriented to person, place, time, and situation. Appropriate and pleasant affect. Assessment and Plan of Care: Acute postoperative blood loss anemia Reviewed morning labs. Preoperative hemoglobin 13.8 and CBC showing acute postoperative blood loss anemia with hemoglobin of 11.0, this is a stable and ex pected finding. No need for transfusion or additional orders/interventions at this time. Spondylolisthesis Status post lumbar surgery L5 through S1 Patient underwent elective laminectomy with facetectomy and foraminotomy L5 through S1 with CT-guided posterior lateral fusion, discectomy at L5 through S1, placement of interbody graft L5 through S1, fusion for hardware placement of L5 through S1, local protein is bone grafting, and aspiration of bone marrow with bone graft extenders with Dr. Ramos on 01/08/23. Management per primary admitting orthospine surgery team including DVT prophylaxis, pain management, wound/dressing/drain care, and PT/OT. DVT prophylaxis currently with SCDs. Order placed for morning CBC and BMP and will follow-up on results and place additional orders as indicated based upon these results. Asthma, moderate persistent not in acute exacerbation. Patient to continue daily medication regimen with Zyrtec 10 mg daily and Singulair 10 mg daily. Order placed for duo nebs every 2 hours as needed for wheezing and/or shortness of breath. Encourage use of incentive spirometry 10-15 times hourly while awake. Bipolar disorder Depression ADHD Home medications reviewed and reordered. Patient to continue with daily medication regimen consisting of Pristiq 50 mg daily, Adderall 15 mg daily, and Lamictal 25 mg daily. Data review: Vital signs reviewed and stable. Blood pressure 118/70, heart rate 98, respiratory rate 18, temp 98.5F, and SpO2 98% on room air. Reviewed morning labs. Preoperative hemoglobin 13.8 and CBC showing acute postoperative blood loss anemia with hemoglobin of 11.0, this is stable and expected finding. BMP unremarkable. Thank you for allowing us to participate in the care of this pleasant patient. Do not hesitate to contact us with questions. Someone can be reached from the [facility] hospitalist group all hours of the day at [phone] or via perfect serve. Patient was seen independently by Nurse Practitioner. This document was prepared using [employer] dictation software. Please allow for errors in supply technician while rare they do occur. I reviewed the documentation as provided by the SHEFALI above, who is the original author of this note. I agree with the documented assessment and plan, with the following changes: none Objective - Vital Signs Vital signs: Vital Signs Temp 98.1 F 01/09/23 07:15 Pulse 97 01/09/23 07:15 Resp 18 01/09/23 07:15 BP 89/53 01/09/23 07:15 Pulse Ox 96 01/09/23 07:15 FiO2 Intake & Output 01/08/23 01/09/23 01/09/23 18:59 06:59 18:59 Intake Total 1901 1450 Output Total 385 1500 Balance 1516 -50 Intake: IV 1851 Intake, IV Titration 50 950 Amount Sodium Chloride 0.9% 1, 900 000 ml @ 75 mls/hr IV . [id number] [facility] Rx#:[id number] ceFAZolin 2 gm In Sodium 50 50 Chloride 0.9% 50 ml @ 100 mls/hr IVPB ONCE PRN Rx# :[id number] Oral 500 Output: Urine 135 1500 Estimated Blood Loss 250 Other: Voiding Method Indwelling Catheter Indwelling Catheter - Labs CBC & Chem 7: 01/09/23 05:49 01/09/23 05:49
[2023-01-10] MEDS: SODIUM CHLORIDE 0.9% 1,000 ML IV SCH ×2 (01:58→15:05)
[2023-01-10] MEDS: HYDROcodone/APAP 5-325MG 1 EACH TAB PO PRN ×3 (03:00→15:05)
[2023-01-10] MEDS: HYDROmorphone 1 MG/ML 1 ML SYRINGE IVP PRN ×3 (05:12→18:33)
[2023-01-10] MEDS: lamoTRIgine 25 MG TAB PO SCH (09:44)
[2023-01-10] MEDS: DESVENLAFAXINE SUCCINATE 50 MG TAB.ER.24H PO SCH (09:45)
[2023-01-10] MEDS: LORATADINE 10 MG TAB PO SCH (09:45)
[2023-01-10] MEDS: MONTELUKAST 10 MG TAB PO SCH (09:45)
[2023-01-10] MEDS: SENNOSIDES-DOCUSATE SODIUM 1 EACH TAB PO SCH (09:45)
[2023-01-10] MEDS: CYCLOBENZAPRINE 10 MG TAB PO PRN ×2 (09:49→18:34)
--- NOTE | 2023-01-10 12:08 | P.PN ---
Progress Note - Text Progress Note Date: 01/10/23 Orthopedic Spine History of present illness: Patient is a pleasant 22-year-old female who is seen and examined at the bedside following posterior lateral decompression and fusion performed on Sunday. Patient states they are doing okay post operatively. Currently does not complain of nausea, vomiting, fever, or chills. Patient states pain has been adequately controlled but does continue to require IV and oral medications for pain control. Patient is eating without difficulty. Her Dwyer catheter is discontinued discontinued this morning. She currently sitting in a bedside chair. She has been working with physical therapy. She does have a brace at the bedside which she will wear for comfort support as needed. She is happy with her initial progress postoperatively. She is not experiencing any significant lower extremity leg pain. She is being seen by medicine for postoperative medical management. Physical Exam Lumbar Fusion: Status post surgical day number 2 Patient is awake, alert, and oriented 3 Vital signs stable Good chest excursion with deep inspiration and expiration Abdomen soft nontender Dorsiflexion, plantarflexion, and extensor hallucis longus positive sustained bilaterally No signs or symptoms of DVT; no calf pain; pneumatic cuffs intact bilateral lower extremities Optifoam dressings are dry and intact over the lumbar spine and right iliac crest one small spot of dried blood on the right dressing; no erythema, purulence, or signs of infection Neurovascularly intact bilaterally lower extremities Dwyer catheter has been discontinued Assessment: Status post L5-S1 minimally invasive posterior lateral decompression and fusion with transforaminal lumbar interbody fusion Low back pain L5 spondylolysis L5-S1 dynamic spondylolisthesis Lower extremity radiculopathy History of bipolar disorder Plan: 1. Ambulate as tolerated; work with Physical Therapy to increase mobilization 2. Continue pain control with IV and oral medications; will plan to begin weaning the patient off of IV narcotic medication in anticipation for discharge home in the next 1-2 days MAPS has been reviewed today, 01/10/2023. An "Opiod Start Talking" Form has bee n signed and placed in the patient's chart. A prescription has been written for hydrocodone 5 mg/325 mg, 1 tab every 4 hours as needed for acute pain, dispense #42. She is also given a prescription for cyclobenzaprine 10 mg 1 tab 3 times a day, as needed for muscle spasm, dispensed #60. She'll be given a prescription for Senokot-S 1 tab twice a day as needed for constipation, dispensed #60. These prescriptions are sent to the [facility] pharmacy located within [facility] per request of the patient. 3. Dressings to remain intact with Optifoam; patient may shower with dressings intact 4. Her Dwyer catheter is been discontinued this morning 5. Medical management can continue to manage patient for patient's other medical diagnoses 6. We will continue to follow the patient closely; depending on the patient's progress, we may plan for discharge home as early as tomorrow, 01/10/2023 7. Patient can follow-up with Michael Allen PA-C or Dr. Klever Ramos at [facility] in 2-3 weeks following discharge
--- NOTE | 2023-01-10 14:41 | P.PN ---
Subjective Progress Note Date: 01/10/23 History of Presenting Illness: Patient is a very pleasant 22-year-old female with a past medical history of asthma, ADHD, bipolar disorder, and depression. She is currently admitted under orthospine surgery team status post elective lumbar surgery L5 through S1. We have been consulted for medical management throughout patient's hospitalization. Physical exam: Patient reports continued pain in lower lumbar back. Patient reports she is still having a difficult time with pain control and continues to get IV Dilaudid. Denies any other complaints or needs at this time. Dwyer catheter does remain in place discussed with patient that we need to remove and perform voiding trial. Also discussed this with RN. Vital signs reviewed and stable. General: Nontoxic, no distress and appears stated age. Derm: Skin warm and dry, normal coloration for ethnicity. Head: Atraumatic, normocephalic and symmetric. Eyes: EOMs intact, no lid lag, and anicteric sclera Mouth: no lip lesions, mucus membranes moist Cardiovascular: regular rate and rhythm with normal S1S2, no murmur, positive posterior tibial pulses bilaterally, and cap refill < 2 seconds. Lungs: Respirations even, regular, and unlabored on room air. Lungs CTA bilaterally, no rhonchi, no rales, no wheezing, and no accessory muscle usage. Abdominal: soft, nontender to palpation, no guarding, no appreciable organ omegaly. Dwyer catheter in place. Ext: No gross muscle atrophy, no edema, no contractures. Movement and sensation intact. Neuro: Speech clear, face symmetrical and CN II-XII grossly intact with no noted focal neuro deficits Psych: Alert and oriented to person, place, time, and situation. Appropriate and pleasant affect. Assessment and Plan of Care: Acute postoperative blood loss anemia Reviewed postoperative labs. Preoperative hemoglobin 13.8 and CBC showing acute postoperative blood loss anemia with hemoglobin of 11.0, this is a stable and expected finding. No need for transfusion or additional orders/interventions at this time. Spondylolisthesis Status post lumbar surgery L5 through S1 Patient underwent elective laminectomy with facetectomy and foraminotomy L5 through S1 with CT-guided posterior lateral fusion, discectomy at L5 through S1, placement of interbody graft L5 through S1, fusion for hardware placement of L5 through S1, local protein is bone grafting, and aspiration of bone marrow with bone graft extenders with Dr. Ramos on 01/08/23. Management per primary admitting orthospine surgery team including DVT prophylaxis, pain management, wound/dressing/drain care, and PT/OT. DVT prophylaxis currently with SCDs. Asthma, moderate persistent not in acute exacerbation. Patient to continue daily medication regimen with Zyrtec 10 mg daily and Singulair 10 mg daily. Order placed for duo nebs every 2 hours as needed for wheezing and/or shortness of breath. Encourage use of incentive spirometry 10-15 times hourly while awake. Bipolar disorder Depression ADHD Home medications reviewed and reordered. Patient to continue with daily medication regimen consisting of Pristiq 50 mg daily, Adderall 15 mg daily, and Lamictal 25 mg daily. Data review: Vital signs reviewed and stable. Blood pressure 105/66, heart rate 96, respiratory rate 16, temp 97.7F, SpO2 of 98% on room air. Discussed with RN need for removal of Dwyer catheter to perform voiding challenge. If patient able to void independently once Dwyer catheter has been removed and pain appropriately controlled with oral pain medications, patient is cleared from medical perspective for discharge once cleared by primary admitting orthospine surgery team. Thank you for allowing us to participate in the care of this pleasant patient. Do not hesitate to contact us with questions. Someone can be reached from the [facility] hospitalist group all hours of the day at [phone] or via [employer] serve. Patient was seen independently by Nurse Practitioner. This document was prepared using [employer] dictation software. Please allow for errors in tenterer while rare they do occur. Fidel Newby NP rendered care for this patient independently, reviewed the findings and plan as documented in the note above. I did not physically speak with or examine the patient on this date. Objective - Vital Signs Vital signs: Vital Signs Temp 97.7 F 01/10/23 07:54 Pulse 96 01/10/23 07:54 Resp 16 01/10/23 07:54 BP 105/66 01/10/23 07:54 Pulse Ox 98 01/10/23 07:54 FiO2 Intake & Output 01/09/23 01/10/23 01/10/23 18:59 06:59 18:59 Intake Total 1500 Output Total 3200 1025 Balance -3200 475 Intake: Intake, IV Titration 900 Amount Sodium Chloride 0.9% 1, 900 000 ml @ 75 mls/hr IV . [id number] [facility] Rx#:[id number] Oral 600 Output: Urine 3200 1025 Other: Voiding Method Indwelling Catheter Indwelling Catheter - Labs CBC & Chem 7: 01/09/23 05:49 01/09/23 05:49 Labs: Abnormal Lab Results - Last 24 Hours (Table) 01/09/23 01/09/23 Range/Units 05:49 05:49 RBC 3.49 L (4.10-5.20) X 10*6/uL Hgb 11.0 L (12.0-15.0) d/dL Hct 33.6 L (37.2-46.3) % Eosinophils # 0.02 L (0.04-0.35) X 10*3/uL BUN 6.1 L (9.0-27.0) mg/dL BUN/Creatinine Ratio 10.17 L (12.00-20.00) Ratio Glucose 111 H (70-110) mg/dL
[2023-01-10] MEDS: LACTATED RINGERS 1,000 ML IV SCH (18:33)
[2023-01-11] MEDS: HYDROcodone/APAP 5-325MG 1 EACH TAB PO PRN ×4 (00:28→14:07)
[2023-01-11] MEDS: SODIUM CHLORIDE 0.9% 1,000 ML IV SCH (06:17)
[2023-01-11 08:32] VITALS: BP 98/62; PULSE 92; RESP 16; TEMP 98.1
[2023-01-11] MEDS: MONTELUKAST 10 MG TAB PO SCH (09:52)
[2023-01-11] MEDS: lamoTRIgine 25 MG TAB PO SCH (09:52)
[2023-01-11] MEDS: DESVENLAFAXINE SUCCINATE 50 MG TAB.ER.24H PO SCH (09:52)
[2023-01-11] MEDS: SENNOSIDES-DOCUSATE SODIUM 1 EACH TAB PO SCH (09:52)
[2023-01-11] MEDS: LORATADINE 10 MG TAB PO SCH (09:53)
--- NOTE | 2023-01-11 09:55 | P.PN ---
Subjective Progress Note Date: 01/11/23 History of Presenting Illness: Patient is a very pleasant 22-year-old female with a past medical history of asthma, ADHD, bipolar disorder, and depression. She is currently admitted under orthospine surgery team status post elective lumbar surgery L5 through S1. We have been consulted for medical management throughout patient's hospitalization. Physical exam: Dwyer catheter has been pulled inpatient urinating without any reported difficulties. Patient has also not required any further IV Dilaudid since yesterday evening. Pain being controlled with oral pain medications only at this time. Vital signs reviewed and stable. General: Nontoxic, no distress and appears stated age. Derm: Skin warm and dry, normal coloration for ethnicity. Head: Atraumatic, normocephalic and symmetric. Eyes: EOMs intact, no lid lag, and anicteric sclera Mouth: no lip lesions, mucus membranes moist Cardiovascular: regular rate and rhythm with normal S1S2, no murmur, positive posterior tibial pulses bilaterally, and cap refill < 2 seconds. Lungs: Respirations even, regular, and unlabored on room air. Lungs CTA bilaterally, no rhonchi, no rales, no wheezing, and no accessory muscle usage. Abdominal: soft, nontender to palpation, no guarding, no appreciable organomegaly. Ext: No gross muscle atrophy, no edema, no contractures. Movement and sensation intact. Neuro: Speech clear, face symmetrical and CN II-XII grossly intact with no noted focal neuro deficits Psych: Alert and oriented to person, place, time, and situation. Appropriate and pleasant affect. Assessment and Plan of Care: Acute postoperative blood loss anemia Reviewed postoperative labs. Preoperative hemoglobin 13.8 and CBC showing acute postoperative blood loss anemia with hemoglobin of 11.0, this is a stable and expected finding. No need for transfusion or additional orders/interventions at this time. Spondylolisthesis Status post lumbar surgery L5 through S1 Patient underwent elective laminectomy with facetectomy and foraminotomy L5 through S1 with CT-guided posterior lateral fusion, discectomy at L5 through S1, placement of interbody graft L5 through S1, fusion for hardware placement of L5 through S1, local protein is bone grafting, and aspiration of bone marrow with bone graft extenders with Dr. Ramos on 01/08/23. Management per primary admitting orthospine surgery team including DVT prophylaxis, pain management, wound/dressing/drain care, and PT/OT. DVT prophylaxis currently with SCDs. Asthma, moderate persistent not in acute exacerbation. Patient to continue daily medication regimen with Zyrtec 10 mg daily and Singulair 10 mg daily. Order placed for duo nebs every 2 hours as needed for wheezing and/or shortness of breath. Encourage use of incentive spirometry 10-15 times hourly while awake. Bipolar disorder Depression ADHD Home medications reviewed and reordered. Patient to continue with daily medication regimen consisting of Pristiq 50 mg daily, Adderall 15 mg daily, and Lamictal 25 mg daily. Data review: Vital signs reviewed and stable. Blood pressure 98/62, heart rate 92, respiratory rate 16, and temp 98.1F with SpO2 of 97% on room air. Patient is cleared from medical perspective for discharge once cleared by primary admitting orthospine surgery team. Thank you for allowing us to participate in the care of this pleasant patient. Do not hesitate to contact us with questions. Someone can be reached from the [facility] hospitalist group all hours of the day at [phone] or via [employer]. Patient was seen independently by Nurse Practitioner. This document was prepared using [employer] dictation software. Please allow for errors in spring tester while rare they do occur. Fidel Newby NP rendered care for this patient independently, reviewed the findings and plan as documented in the note above. I did not physically speak with or examine the patient on this date. Objective - Vital Signs Vital signs: Vital Signs Temp 99.6 F 01/11/23 01:57 Pulse 104 H 01/11/23 01:57 Resp 20 01/11/23 01:57 BP 107/68 01/11/23 01:57 Pulse Ox 95 01/11/23 01:57 FiO2 Intake & Output 01/10/23 01/11/23 01/11/23 18:59 06:59 18:59 Output Total 600 Balance -600 Output: Urine 600 Other: Voiding Method Indwelling Catheter Toilet # Voids 1 1 - Labs CBC & Chem 7: 01/09/23 05:49 01/09/23 05:49
--- NOTE | 2023-01-11 10:14 | P.DS ---
Providers Date of admission: 01/08/23 10:30 Attending physician: Eliz Ramos Consults: 01/08/23 17:06 Consult Physician Routine Consulting Provider: Juanita Etienne Consult Reason/Comments: medical mgmt. Do you want consulting provider notified?: Yes Primary care physician: Pelon Criss [facility] Course: The patient presented on the day of admission as per their operative note. She had a dynamic spondylolisthesis at L5-S1 and underwent a minimally invasive decompression and fusion as per her operative note. She has been making good progress postoperatively and increasing her mobilization. She is tolerating food well. She is t voiding freely. She is passing gas well. Physical Exam The incision site is clean dry and intact. There is no erythema no drainage. There is no purulence no evidence of infection. There is no active drainage at her back. There is no erythema. Abdomen soft and nontender. Chest has good excursion with deep inspiration and expiration. The patient has active and passive range of motion intact at the upper and lower extremities. There is no acute change in neurologic status. She has sustained dorsal flexion plantar flexion and EHL intact. Hospital Course Postoperative day #3 status post minimally invasive decompression fusion L5-S1 for a dynamic spondylolisthesis and low back pain. The patient has been making good progress postoperatively. They have completed the prophylactic antibiotics without any signs or symptoms of infection. The patient has been able to advance their diet, and is tolerating diet adequately. The pain was initially controlled with IV medications and is now controlled appropriately with oral medications. The patient has been able to increase their mobilization. The patient has progressed appropriately. I think they are in good stable condition for discharge today. They will be sent home with appropriate prescriptions. I answered their questions to the best of my ability in a language that they can understand and they are agreeable with the plan. They will follow up as directed in approximately 2 weeks or sooner if she is having problems. Plan - Discharge Summary Discharge Rx Participant: No New Discharge Prescriptions: New Cyclobenzaprine [Flexeril] 10 mg PO TID PRN #60 tab PRN Reason: Muscle Spasm HYDROcodone/APAP 5-325MG [[place] 5] 1 each PO Q4HR PRN #42 tab PRN Reason: Pain Sennosides-Docusate Sodium [Senokot-S] 1 tab PO BID PRN #60 tablet PRN Reason: Constipation No Action Dextroamphetamine/Amphetamine [Adderall Xr 15 mg Capsule] 15 mg PO DAILY Desvenlafaxine Succinate [Pristiq ER] 50 mg PO DAILY Montelukast [Singulair] 10 mg PO DAILY Cetirizine HCl [Zyrtec] 10 mg PO DAILY lamoTRIgine [LaMICtal] 50 mg PO DAILY Discharge Medication List Desvenlafaxine Succinate [Pristiq ER] 50 mg PO DAILY 11/02/22 [History] Dextroamphetamine/Amphetamine [Adderall Xr 15 mg Capsule] 15 mg PO DAILY 11/02/22 [History] Montelukast [Singulair] 10 mg PO DAILY 11/02/22 [History] lamoTRIgine [LaMICtal] 50 mg PO DAILY 11/02/22 [History] Cetirizine HCl [Zyrtec] 10 mg PO DAILY 01/01/23 [History] Cyclobenzaprine [Flexeril] 10 mg PO TID PRN #60 tab 01/10/23 [Rx] HYDROcodone/APAP 5-325MG [[place] 5] 1 each PO Q4HR PRN #42 tab 01/10/23 [Rx] Sennosides-Docusate Sodium [Senokot-S] 1 tab PO BID PRN #60 tablet 01/10/23 [Rx] Follow up Appointment(s)/Referral(s): Michael Allen, SANKET [PHYSICIAN HOME HEALTH OUTREACH COORDINATOR] - 2 Weeks (Patient may follow-up with Michael Allen PA-C or Dr. Klever Ramos at [facility] in 2-3 weeks following discharge. ) Activity/Diet/Wound Care/Special Instructions: 1. Patient may shower with Optifoam dressing intact. 2. Patient may remove Optifoam dressing in 3 days and shower without a dressing at that time. 3. Patient should refrain from driving until at least after their first follow- up appointment in the office. 4. Patient should avoid excessive bending, twisting, lifting; avoid overhead lifting; no lifting greater than 10 pounds 5. Take medications as prescribed 6. Patient should avoid anti-inflammatory medications over the next 6 weeks postoperatively 7. Do not soak in tub Discharge Disposition: HOME SELF-CARE
== END 2023-01-11 14:40 | disposition home or self-care (01) ==
LOC: OR 05:43 → 5NMEDONC 10:30 → OR 10:30 → 5NMEDONC 14:54
PROVIDERS: ADMIT Orthopaedic Surgery Orthopaedic Surgery of the Spine; ATTEND Orthopaedic Surgery Orthopaedic Surgery of the Spine
DX: M43.16 Spondylolisthesis, lumbar region (principal); M43.17 Spondylolisthesis, lumbosacral region; M54.10 Radiculopathy, site unspecified; D62 Acute posthemorrhagic anemia; J45.40 Moderate persistent asthma, uncomplicated; F31.9 Bipolar disorder, unspecified; F90.9 Attention-deficit hyperactivity disorder, unspecified type; M19.90 Unspecified osteoarthritis, unspecified site; F41.9 Anxiety disorder, unspecified; M41.9 Scoliosis, unspecified; Z79.899 Other long term (current) drug therapy; Z83.2 Family history of diseases of the blood and blood-forming organs and certain disorders involving the immune mechanism
CPT/HCPCS: 22633; 76376; 77012; 97530 ×2; 97162; 81025; 86900; 86901; 80048; 85025; 86850; 72100; G0378 ×3; C1713 ×2; C1762; J2250; J0330; J2710; J0690 ×2; J2405; J3010; J1170 ×4; J2704; J2001; J2371

== ENCOUNTER 2024-08-18 14:32 | Emergency (ER) | payer BC ==
[2024-08-18 14:39] VITALS: TEMP 97.7
--- NOTE | 2024-08-18 15:19 | ED ---
Nausea/Vomiting/Diarrhea HPI - General Chief complaint: Nausea/Vomiting/Diarrhea Stated complaint: Vomiting-14 weeks preg Time Seen by Provider: 08/18/24 15:17 Source: patient, RN notes reviewed Mode of arrival: ambulatory Limitations: no limitations - History of Present Illness Initial comments: 24-year-old G1, P0 approximately 14 weeks gestation female presenting to the ER for evaluation of nausea and vomiting. Patient states throughout this she has been extremely nauseous and has been taking prescribed Zofran with relief. She states today she was unable to keep anything down including liquids. She states she attempted to take her Zofran but immediately vomited it back up. Patient contacted OB, , who advised her to come to the ER for hydration. She denies any hematic emesis or coffee-ground emesis. She denies any abdominal pain, vaginal bleeding or discharge, urinary complaints or peripheral edema. No fevers, chills or other acute complaints. - Related Data Home Medications Medication Instructions Recorded Confirmed Desvenlafaxine Succinate [Pristiq 50 mg PO DAILY 11/02/22 01/08/23 ER] Dextroamphetamine/Amphetamine 15 mg PO DAILY 11/02/22 01/08/23 [Adderall Xr 15 mg Capsule] Montelukast [Singulair] 10 mg PO DAILY 11/02/22 01/08/23 lamoTRIgine [LaMICtal] 50 mg PO DAILY 11/02/22 01/08/23 Cetirizine HCl [Zyrtec] 10 mg PO DAILY 01/01/23 01/08/23 Previous Rx's Medication Instructions Recorded Cyclobenzaprine [Flexeril] 10 mg PO TID PRN #60 tab 01/10/23 HYDROcodone/APAP 5-325MG [[place] 5] 1 each PO Q4HR PRN #42 tab 01/10/23 Sennosides-Docusate Sodium 1 tab PO BID PRN #60 tablet 01/10/23 [Senokot-S] Allergies Allergy/AdvReac Type Severity Reaction Status Date / Time No Known Allergies Allergy Verified 01/08/23 06:30 Review of Systems ROS Statement: Those systems with pertinent positive or pertinent negative responses have been documented in the HPI. ROS Other: All systems not noted in ROS Statement are negative. Past Medical History Past Medical History: Asthma, Osteoarthritis (OA) Additional Past Medical History / Comment(s): scoliosis History of Any Multi-Drug Resistant Organisms: None Reported Past Surgical History: No Surgical Hx Reported Additional Past Surgical History / Comment(s): (WISDOM TOOTH EXTRACTION) Past Anesthesia/Blood Transfusion Reactions: No Reported Reaction Past Psychological History: ADD/ADHD, Anxiety, Bipolar, Depression Smoking Status: Never smoker Past Alcohol Use History: Rare Past Drug Use History: None Reported - Past Family History Father Family Medical History: Pulmonary Embolus Additional Family Medical History / Comment(s): COVID RELATED PE General Exam Limitations: no limitations General appearance: alert, in no apparent distress Respiratory exam: Present: normal lung sounds bilaterally. Absent: respiratory distress, wheezes, rales, rhonchi, stridor Cardiovascular Exam: Present: regular rate, normal rhythm, normal heart sounds. Absent: systolic murmur, diastolic murmur, rubs, gallop, clicks GI/Abdominal exam: Present: soft, normal bowel sounds. Absent: distended, tenderness, guarding, rebound, rigid Neurological exam: Present: alert, oriented X3, CN II-XII intact Skin exam: Present: warm, dry, intact, normal color. Absent: rash Course Vital Signs 08/18/24 08/18/24 14:36 16:36 Temperature 97.7 F Pulse Rate 79 86 Respiratory 20 18 Rate Blood Pressure 119/77 124/80 O2 Sat by Pulse 99 99 Oximetry Medical Decision Making - Medical Decision Making Was pt. sent in by a medical professional or institution (TREY Maher, [employer], urgent care, hospital, or fci...) When possible be specific @ -Patient instructed to come to the emergency department for IV fluids by import and export clerk. Did you speak to anyone other than the patient for history (EMS, parent, family, police, friend...)? What history was obtained from this source @ -No Did you review nursing and triage notes (agree or disagree)? Why? @ -I reviewed and agree with nursing and triage notes Were old charts reviewed (outside hosp., previous admission, EMS record, old EKG, old radiological studies, urgent care reports/EKG's, fci records)? Report findings @ -No old charts were reviewed Differential Diagnosis (chest pain, altered mental status, abdominal pain women, abdominal pain men, vaginal bleeding, weakness, fever, dyspnea, syncope, headache, dizziness, GI bleed, back pain, seizure, CVA, palpatations, mental health, musculoskeletal)? @ -Viral illness, hyperemesis , marijuana abuse... This list is not meant to be all-inclusive EKG interpreted by me (3pts min.). @ -None done X-rays interpreted by me (1pt min.). @ -None done CT interpreted by me (1pt min.). @ -None done U/S interpreted by me (1pt. min.). @ -None done What testing was considered but not performed or refused? (CT, X-rays, U/S, labs)? Why? @ -None What meds were considered but not given or refused? Why? @ -Outpatient zofran prescription offered to patient, she states she has enough at home and does not need refill. Did you discuss the management of the patient with other professionals (professionals i.e. , PA, [employer] MECH[employer]IC, lab, RT, psych nurse, social work manager, vice squad police officer, teacher, forest fire officer, nurse case manager)? Give summary @ -No Was smoking cessation discussed for >3mins.? @ -No Was critical care preformed (if so, how long)? @ -No Were there social determinants of health that impacted care today? How? (Home lessness, low income, unemployed, alcoholism, drug addiction, transportation, low edu. Level, literacy, decrease access to med. care, senior care, rehab)? @ -No Was there de-escalation of care discussed even if they declined (Discuss DNR or withdrawal of care, Hospice)? DNR status @ -No What co-morbidities impacted this encounter? (DM, HTN, Smoking, COPD, CAD, Cancer, CVA, ARF, Chemo, Hep., AIDS, mental health diagnosis, sleep apnea, morbid obesity)? @ - Was patient admitted / discharged? Hospital course, mention meds given and route, prescriptions, significant lab abnormalities, going to OR and other pertinent info. @ -Discharge. 24-year-old female approximately 14 weeks gestation presenting to the ER for evaluation of nausea and vomiting. Patient states this been an ongoing issue throughout this and was instructed by OB to come to the ER for further evaluation. Upon my evaluation, vitals within acceptable limits. Patient in no signs of acute distress nontoxic-appearing. Patient denying any obstetrical complaints. Laboratory studies obtained without significant electrolyte abnormality, infection or acidosis. UA concerning of dehydration believed to be due from nausea and vomiting with 2+ ketones and trace protein, no infection. Patient given symptomatic control emergency department with IV fluids, pyroxidine and Zofran, with improvement. heart tones obtained by labor and special delivery mail carrier with a heart tone of 140s. Upon reevaluation, patient resting up in exam room no signs of acute distress. Patient reported improvement of nausea. Patient tolerating oral intake with crackers and water. Patient can be discharged home with close follow-up to [facility]. Patient reports she has Zofran prescription at home and does not need a refill at this time. Return parameters discussed. Patient discharged in stable condition. Patient verbally expressed understanding agree with care plan. Case discussed with ED attending, Dr. Hyman. Undiagnosed new problem with uncertain prognosis? @ -No Drug Therapy requiring intensive monitoring for toxicity (Heparin, Nitro, Insulin, Cardizem)? @ -No Were any procedures done? @ -No Diagnosis/symptom? @ -Nausea and vomiting in Acute, or Chronic, or Acute on Chronic? @ -Acute Uncomplicated (without systemic symptoms) or Complicated (systemic symptoms)? @ -Uncomplicated Side effects of treatment? @ -No Exacerbation, Progression, or Severe Exacerbation? @ -No Poses a threat to life or bodily function? How? (Chest pain, [place], [place], pneumonia, PE, COPD, DKA, ARF, appy, cholecystitis, CVA, Diverticulitis, Homicidal, Suicidal, threat to staff... and all critical care pts) @ -No - Lab Data Result diagrams: 08/18/24 15:39 08/18/24 15:39 Lab Results 08/18/24 08/18/24 08/18/24 Range/Units 15:39 15:39 15:39 WBC 10.4 (3.8-10.6) k/uL RBC 5.00 (3.80-5.40) m/uL Hgb 15.5 (11.4-16.0) gm/dL Hct 46.2 H (34.0-46.0) % MCV 92.4 (80.0-100.0) fL MCH 30.9 (25.0-35.0) pg MCHC 33.5 (31.0-37.0) g/dL RDW 12.4 (11.5-15.5) % Plt Count 252 (150-450) k/uL MPV 8.5 Neutrophils % 84 % Lymphocytes % 11 % Monocytes % 3 % Eosinophils % 0 % Basophils % 0 % Neutrophils # 8.8 H (1.3-7.7) k/uL Lymphocytes # 1.2 (1.0-4.8) k/uL Monocytes # 0.3 (0-1.0) k/uL Eosinophils # 0.0 (0-0.7) k/uL Basophils # 0.0 (0-0.2) k/uL Sodium 136 L (137-145) mmol/L Potassium 3.9 (3.5-5.1) mmol/L Chloride 102 (98-107) mmol/L Carbon Dioxide 24 (22-30) mmol/L Anion Gap 10 mmol/L BUN 7 (7-17) mg/dL Creatinine 0.48 L (0.52-1.04) mg/dL Est GFR (CKD-EPI)AfAm >90 (>60 ml/min/1.73 sqM) Est GFR (CKD-EPI)NonAf >90 (>60 ml/min/1.73 sqM) Glucose 92 (74-99) mg/dL Calcium 10.4 H (8.4-10.2) mg/dL Total Bilirubin 0.4 (0.2-1.3) mg/dL AST 24 (14-36) U/L ALT 25 (4-34) U/L Alkaline Phosphatase 65 (38-126) U/L Total Protein 7.1 (6.3-8.2) g/dL Albumin 4.6 (3.5-5.0) g/dL Urine Color Light Yellow Urine Appearance Clear (Clear) Urine pH 8.0 (5.0-8.0) Ur Specific [place] 1.025 (1.001-1.035) Urine Protein Trace H (Negative) Urine Glucose (UA) Negative (Negative) Urine Ketones 2+ H (Negative) Urine Blood Negative (Negative) Urine Nitrite Negative (Negative) Urine Bilirubin Negative (Negative) Urine Urobilinogen <2.0 (<2.0) mg/dL Ur Leukocyte Esterase Negative (Negative) Disposition Clinical Impression: Nausea and vomiting during Disposition: HOME SELF-CARE Condition: Stable Instructions (If sedation given, give patient instructions): Acute Nausea and Vomiting (ED) Additional Instructions: Follow-up with [facility]. Return to the ER for any new or worsening symptoms. Is patient prescribed a controlled substance at d/c from ED?: No Referrals: Pelon Kahn MD [Primary Care Provider] - 1-2 days Maty Hdz MD [STAFF PHYSICIAN] - 1-2 days Time of Disposition: 16:36
[2024-08-18] MEDS: ONDANSETRON 4 MG/2 ML VIAL IVP STA (15:34)
[2024-08-18] MEDS: PYRIDOXINE 100 MG/ML 1 ML VIAL IVP SCH (15:36)
[2024-08-18] MEDS: SODIUM CHLORIDE 0.9% 1,000 ML IV ONE (15:37)
[2024-08-18 15:50] LABS: Appearance,Urine Clear (Clear); Bilirubin,Urine Negative (Negative); Blood,Urine Negative (Negative); Color,Urine Light Yellow; Glucose,Urine (UA) Negative (Negative); Ketones,Urine 2+ (Negative); Leukocyte Esterase,Urine Negative (Negative); Nitrite,Urine Negative (Negative); Protein,Urine Trace (Negative); Specific Gravity,Urine 1.025 (1.001-1.035); Urobilinogen,Urine <2.0 mg/dL (<2.0)
[2024-08-18 16:01] LABS: ALT 25 U/L (4-34); AST 24 U/L (14-36); African American GFR (CKD) >90 (>60 ml/min/1.73 sqM); Albumin 4.6 g/dL (3.5-5.0); Alkaline Phosphatase 65 U/L (38-126); Anion Gap 10 mmol/L; Blood Urea Nitrogen 7 mg/dL (7-17); Calcium 10.4 mg/dL (8.4-10.2); Carbon Dioxide 24 mmol/L (22-30); Chloride 102 mmol/L (98-107); Glucose 92 mg/dL (74-99); Non-African American GFR(CKD) >90 (>60 ml/min/1.73 sqM); Potassium 3.9 mmol/L (3.5-5.1); Sodium 136 mmol/L (137-145); Total Bilirubin 0.4 mg/dL (0.2-1.3); Total Protein 7.1 g/dL (6.3-8.2)
[2024-08-18 16:02] LABS: Basophils % (A) 0 %; Eosinophils % (A) 0 %; HCT 46.2 % (34.0-46.0); HGB 15.5 gm/dL (11.4-16.0); Lymphocytes # (A) 1.2 k/uL (1.0-4.8); Lymphocytes % (A) 11 %; MCH 30.9 pg (25.0-35.0); MCHC 33.5 g/dL (31.0-37.0); MCV 92.4 fL (80.0-100.0); Mean Platelet Volume 8.5; Monocytes # (A) 0.3 k/uL (0-1.0); Monocytes % (A) 3 %; Neutrophils # (A) 8.8 k/uL (1.3-7.7); Neutrophils % (A) 84 %; Platelet Count 252 k/uL (150-450); RDW 12.4 % (11.5-15.5); WBC 10.4 k/uL (3.8-10.6)
[2024-08-18 16:37] VITALS: BP 124/80; PULSE 86; RESP 18
== END 2024-08-18 16:41 | disposition home or self-care (01) ==
LOC: EC 14:32
DX: O21.9 Vomiting of pregnancy, unspecified (principal); Z3A.14 14 weeks gestation of pregnancy
CPT/HCPCS: 36415; 80053; 85025; 81003; 99284; 96374; 96375; 96361; J3415; J2405